=== PATIENT | female | born 1950 | race Caucasian/White ===

== ENCOUNTER → 2020-11-06 | Outpatient (CLI) | payer OTHER, MEDICARE ==
[~2020-11-06] MED LIST: ASPI325; FLUT1DIS5; METFORMIN HCL1000 MG; Nexium40 MG; Ranitidine HCl300 M1; ZESTORETIC 20-121 EA
[2020-11-13 09:08] LABS: COLOR Orange (.); SIZE 1x3 mm (.)
== END ==
LOC: PLD 17:34 → LAB 17:34 → LAB SHORT 17:34
PROVIDERS: Family Medicine
DX: N20.0 Calculus of kidney (principal)
CPT/HCPCS: 82365

== ENCOUNTER 2022-12-20 19:30 | Emergency (ER) | payer OTHER ==
[~2022-12-20] VITALS: Ht 162.6 cm; Wt 87.1 kg
[2022-12-20] MEDS ORDERED: MONT10T (19:49)
[2022-12-20] MEDS ORDERED: ESTRADIOL42.5 GM (19:49)
[2022-12-20 22:50] VITALS: BP 175/74
== END 2022-12-20 22:58 | disposition home or self-care (01) ==
LOC: ER 19:30
DX: S00.212A Abrasion of left eyelid and periocular area, initial encounter (principal); S80.211A Abrasion, right knee, initial encounter; S50.311A Abrasion of right elbow, initial encounter; W54.1XXA Struck by dog, initial encounter; Z88.1 Allergy status to other antibiotic agents; Z79.899 Other long term (current) drug therapy; Z79.84 Long term (current) use of oral hypoglycemic drugs; Z79.82 Long term (current) use of aspirin; Z80.0 Family history of malignant neoplasm of digestive organs; I10 Essential (primary) hypertension; E11.9 Type 2 diabetes mellitus without complications
CPT/HCPCS: 70450; 99284-25